=== PATIENT | female | born 1980 | race Caucasian/White ===

== ENCOUNTER → 2017-09-17 17:12 | Outpatient (CLI) | payer OTHER ==
[2015-03-08 05:14] VITALS: BMI 44.5
[~2017-09-17 17:12] MED LIST: HYDROCODONE-APA1 TAB PO; IBUPROFEN600 MG PO; PRENATAL COMPLE1 TAB PO; PROTONIX40 MG PO
== END | disposition home or self-care (01) ==
LOC: D.MAMMO 10:00
DX: N64.52 Nipple discharge (principal)

== ENCOUNTER → 2018-08-24 14:20 | Outpatient (CLI) | payer OTHER ==
[2015-03-08 05:14] VITALS: BMI 44.5
--- NOTE | ~2018-08-24 | ST ---
PATIENT:ANISH DOTY MEDICAL RECORD: [id number] SEX: F LOCATION:[facility] ORDER #: ADMISSION DATE: 08/24/18 AGE OF PATIENT: 38 REFERRING PHYSICIAN: INTERPRETING PHYSICIAN: STEFANY METZGER MD TREADMILL STRESS TEST DATE OF SERVICE: 08/24/2018 REFERRING PHYSICIAN: Amaya Johansen MD DESCRIPTION: Baseline electrocardiogram is normal. The patient exercised for 10 minutes via Fidel protocol. The maximum heart rate was 181 beats per minute which was 100% of maximum predicted. No electrocardiographic changes of ischemia. No symptoms of ischemia. Normal blood pressure response to exercise. No arrhythmias noted. Good exercise tolerance for age. STEFANY METZGER MD CC: MOISES JOHANSEN [phone] DICTATION DATE: 09/01/18 ACCOUNTS PAYABLE OR RECEIVABLE CLERK: YOANDY 09/03/18 1255 DEP CLI 08/24/[address] [id number]
== END | disposition home or self-care (01) ==
LOC: D.HCCARDIO 14:20
DX: R07.9 Chest pain, unspecified (principal)